=== PATIENT | male | born 1975 | race Caucasian/White ===

== ENCOUNTER 2021-11-04 06:22 | Day surgery (SDC) | payer MEDICAID ==
[~2021-11-04] VITALS: Ht 170.2 cm; Wt 93.4 kg
[2021-11-04] VITALS (17 sets, daily range): BP systolic 103–163; BP diastolic 58–109
[2021-11-04] MEDS ORDERED: normal saline 1000ml 1,000 ML IV SCH (06:40)
[2021-11-04] MEDS ORDERED: NO HOME MEDS (06:46)
[2021-11-04] MEDS ORDERED: midazolam 1 mg/ML 2ml injection ONE (08:30)
[2021-11-04] MEDS ORDERED: fentaNYL/PF 50MCG/1 ML 2ML syringe ONE (08:30)
[2021-11-04] MEDS ORDERED: LIDOcaine 1% (10mg/ml)w/preservative inj. 20ml MDV ONE (08:30)
[2021-11-04] MEDS ORDERED: gelatin sponge, absorbable (Gelfoam 12-7MM) sponge TP ONE (09:26)
[2021-11-04] MEDS ORDERED: HYDROcodone/acetaminophen 5mg/325mg tablet PO PRN ×2 (09:30)
== END 2021-11-04 12:15 | disposition home or self-care (01) ==
LOC: SSTAY O 06:22
PROVIDERS: ATTEND Radiology Vascular & Interventional Radiology
DX: R91.8 Other nonspecific abnormal finding of lung field (principal); G89.29 Other chronic pain
CPT/HCPCS: 32408; 71045; 99152; 99153; J2250; J3010; J3490; 77012